=== PATIENT | female | born 1965 | race Caucasian/White ===

== ENCOUNTER 2019-05-11 22:04 | Emergency (ER) | payer BC ==
[2019-05-11 22:10] VITALS: RESP 18
[2019-05-11] MEDS ORDERED: SODIUM CHLORIDE 0.9% 1,000 ML IV STA (22:24)
[2019-05-11] MEDS ORDERED: MORPHINE SULFATE 4 MG/ML SYRINGE IVP STA (22:24)
--- NOTE | 2019-05-11 22:51 | ED ---
General Adult HPI - General Source: patient, EMS, RN notes reviewed Mode of arrival: EMS Limitations: no limitations <Nj Currie - Last Filed: 05/12/19 00:10> <Haris Cespedes - Last Filed: 05/12/19 01:24> - General Chief complaint: Fall Stated complaint: Dehydration Time Seen by Provider: 05/11/19 22:11 - History of Present Illness Initial comments: 54-year-old female fell any significant past medical history presents to the emergency department for a chief complaint of fall. Patient states that about an hour prior to arrival she was getting off the [employer] building she tripped and fell onto her right arm. States she has much pain with movement of the right arm at this time. States that she was outside for hours in the heat. States that she started to feel lightheaded after this fall but denies having lightheaded before the fall. Denies loss of consciousness. States that the lightheadedness has improved significantly. States she feels she is dehydrated hydrated and tired from being outside in the 90 weather. Denies any difficulty moving the right hand. Denies hitting her head. Does admit to falling on her right knee but states it is not painful and she is able to ambulate using the right knee without difficulty. Patient has no other complaints at this time including shortness of breath, chest pain, abdominal pain, nausea or vomiting, headache, or visual changes. (Nj Currie) - Related Data Home Medications Medication Instructions Recorded Confirmed Escitalopram [Lexapro] 10 mg PO DIRECTED 05/12/19 05/12/19 Previous Rx's Medication Instructions Recorded HYDROcodone/APAP 5-325MG [[place] 1 tab PO Q6HR PRN 3 Days #12 tab 05/12/19 5-325] Rizatriptan Benzoate [Maxalt] 10 mg PO TID PRN #12 tablet 05/12/19 Allergies Allergy/AdvReac Type Severity Reaction Status Date / Time No Known Allergies Allergy Verified 05/12/19 00:29 Review of Systems ROS Other: All systems not noted in ROS Statement are negative. <Nj Currie - Last Filed: 05/12/19 00:10> ROS Other: All systems not noted in ROS Statement are negative. <Haris Cespedes - Last Filed: 05/12/19 01:24> ROS Statement: Those systems with pertinent positive or pertinent negative responses have been documented in the HPI. Past Medical History History of Any Multi-Drug Resistant Organisms: None Reported Past Surgical History: No Surgical Hx Reported Past Psychological History: Depression Smoking Status: Never smoker Past Alcohol Use History: None Reported Past Drug Use History: None Reported <Nj Currie P - Last Filed: 05/12/19 00:10> General Exam Limitations: no limitations General appearance: alert, in no apparent distress Head exam: Present: atraumatic, normocephalic, normal inspection Eye exam: Present: normal appearance, PERRL, EOMI. Absent: scleral icterus, conjunctival injection, periorbital swelling ENT exam: Present: normal exam, mucous membranes moist Neck exam: Present: normal inspection, full ROM. Absent: tenderness, meningismus, lymphadenopathy Respiratory exam: Present: normal lung sounds bilaterally. Absent: respiratory distress, wheezes, rales, rhonchi, stridor Cardiovascular Exam: Present: regular rate, normal rhythm, normal heart sounds. Absent: systolic murmur, diastolic murmur, rubs, gallop, clicks GI/Abdominal exam: Present: soft, normal bowel sounds. Absent: distended, tenderness, guarding, rebound, rigid Extremities exam: Present: normal capillary refill (Very refill less than 2 seconds, radial pulse 2+ the right upper extremity), other (Sensation intact in the right upper extremity). Absent: full ROM (Patient unable to extend her elb ow due to pain which she feels in the right shoulder. Patient able to flex and extend all digits of the right hand as well as the right wrist), joint swelling (No significant edema or ecchymosis present in the right upper extremity) Back exam: Absent: vertebral tenderness Neurological exam: Present: alert, oriented X3, CN II-XII intact, normal gait, other (GCS 15) Psychiatric exam: Present: normal affect, normal mood <Nj Currie P - Last Filed: 05/12/19 00:10> Course Vital Signs 05/11/19 05/11/19 05/12/19 22:06 22:59 00:39 Temperature 97.9 F Pulse Rate 66 75 72 Respiratory 18 18 18 Rate Blood Pressure 113/61 112/73 117/57 O2 Sat by Pulse 100 100 99 Oximetry Medical Decision Making - Lab Data Result diagrams: 05/11/19 22:20 05/11/19 22:20 <Nj Currie - Last Filed: 05/12/19 00:10> - Lab Data Result diagrams: 05/11/19 22:20 05/11/19 22:20 <Haris Cespedes - Last Filed: 05/12/19 01:24> - Medical Decision Making 54-year-old female presents to the emergency department for a chief complaint of fall. States she had a trip and fall getting off of a [employer] wheel. I'll was purely mechanical. Patient fell on her outstretched hand and started to have shoulder pain and arm pain. After the fall she started to feel lightheaded and dehydrated. States that she's been on the sun for several hours today and it was in the 90s. Vitals are stable. On exam patient is well-appearing but does appear to be in pain. Patient has very limited range of motion of the right shoulder due to pain. Able to move right wrist with full flexion. Neurovascular status intact in the right upper extremity. CBC unremarkable. CMP does show evidence of dehydration with a BUN to creatinine ratio of 24 which is consistent with patient's history. X-ray of the right humerus shows questionable cortical step-off at the lateral aspect of the surgical neck. Recommended dedicated shoulder radiography. This was ordered and is pending. Care was signed out to Dr. Cespedes at [id number]. (Nj Currie) Shoulder x-ray was performed showing cortical irregularity at the surgical neck of the humerus. Patient has point tenderness at that area. Patient placed in a right upper extremity sling. Patient is visiting from [place]. She is given referral to bone doctor. Patient given by mouth pain prescription. She is also requests headache medication. Patient given small supply of Maxalt. Return pa rameters discussed. Patient clear for discharge. (Haris Cespedes) - Lab Data Lab Results 05/11/19 05/11/19 Range/Units 22:20 22:20 WBC 7.6 (3.8-10.6) k/uL RBC 3.99 (3.80-5.40) m/uL Hgb 12.4 (11.4-16.0) gm/dL Hct 36.8 (34.0-46.0) % MCV 92.2 (80.0-100.0) fL MCH 31.1 (25.0-35.0) pg MCHC 33.8 (31.0-37.0) g/dL RDW 14.0 (11.5-15.5) % Plt Count 223 (150-450) k/uL Neutrophils % 57 % Lymphocytes % 32 % Monocytes % 5 % Eosinophils % 3 % Basophils % 1 % Neutrophils # 4.3 (1.3-7.7) k/uL Lymphocytes # 2.4 (1.0-4.8) k/uL Monocytes # 0.4 (0-1.0) k/uL Eosinophils # 0.3 (0-0.7) k/uL Basophils # 0.1 (0-0.2) k/uL Sodium 140 (137-145) mmol/L Potassium 4.2 (3.5-5.1) mmol/L Chloride 108 H (98-107) mmol/L Carbon Dioxide 23 (22-30) mmol/L Anion Gap 9 mmol/L BUN 20 H (7-17) mg/dL Creatinine 0.82 (0.52-1.04) mg/dL Est GFR (CKD-EPI)AfAm >90 (>60 ml/min/1.73 sqM) Est GFR (CKD-EPI)NonAf 80 (>60 ml/min/1.73 sqM) Glucose 122 H (74-99) mg/dL Calcium 8.9 (8.4-10.2) mg/dL Disposition <Nj Currie P - Last Filed: 05/12/19 00:10> Is patient prescribed a controlled substance at d/c from ED?: Yes If prescribed controlled substance>3 days was MAPS reviewed?: Prescribed <3 Days Time of Disposition: 01:24 <Haris Cespedes - Last Filed: 05/12/19 01:24> Clinical Impression: Humerus fracture Disposition: HOME SELF-CARE Condition: Good Instructions (If sedation given, give patient instructions): Fall Prevention for Older Adults (ED), Proximal Humerus Fracture (ED) Prescriptions: Rizatriptan Benzoate [Maxalt] 10 mg PO TID PRN #12 tablet PRN Reason: Headache HYDROcodone/APAP 5-325MG [[place] 5-325] 1 tab PO Q6HR PRN 3 Days #12 tab PRN Reason: Severe Pain Referrals: Fernandez Cherry MD [STAFF PHYSICIAN] - 1-2 days
[2019-05-11 22:53] LABS: Basophils # (A) 0.1 k/uL (0-0.2); Basophils % (A) 1 %; Eosinophils # (A) 0.3 k/uL (0-0.7); Eosinophils % (A) 3 %; HCT 36.8 % (34.0-46.0); HGB 12.4 gm/dL (11.4-16.0); Lymphocytes # (A) 2.4 k/uL (1.0-4.8); Lymphocytes % (A) 32 %; MCH 31.1 pg (25.0-35.0); MCHC 33.8 g/dL (31.0-37.0); MCV 92.2 fL (80.0-100.0); Mean Platelet Volume 7.8; Monocytes # (A) 0.4 k/uL (0-1.0); Monocytes % (A) 5 %; Neutrophils # (A) 4.3 k/uL (1.3-7.7); Neutrophils % (A) 57 %; Platelet Count 223 k/uL (150-450); RBC 3.99 m/uL (3.80-5.40); WBC 7.6 k/uL (3.8-10.6)
[2019-05-11 23:01] LABS: African American GFR (CKD) >90 (>60 ml/min/1.73 sqM); Anion Gap 9 mmol/L; Blood Urea Nitrogen 20 mg/dL (7-17); Calcium 8.9 mg/dL (8.4-10.2); Carbon Dioxide 23 mmol/L (22-30); Chloride 108 mmol/L (98-107); Glucose 122 mg/dL (74-99); Potassium 4.2 mmol/L (3.5-5.1); Sodium 140 mmol/L (137-145)
--- NOTE | 2019-05-11 23:33 | XR ---
EXAM: XR Right Forearm, 2 Views CLINICAL HISTORY: ITS.REASON XR Reason: Pain TECHNIQUE: Frontal and lateral views of the right forearm. COMPARISON: No relevant prior studies available. FINDINGS: Bones/joints: Unremarkable. No acute fracture. No dislocation. Soft tissues: Unremarkable. IMPRESSION: Normal right forearm x-rays.
--- NOTE | 2019-05-11 23:42 | XR ---
EXAM: XR Right Humerus, 2 or More Views CLINICAL HISTORY: ITS.REASON XR Reason: Pain TECHNIQUE: Frontal and lateral views of the right humerus. COMPARISON: No relevant prior studies available. FINDINGS: See Impression IMPRESSION: Question cortical step-off at the lateral aspect of the surgical neck of humerus. Recommend dedicated shoulder radiography for further assessment. Remaining exam shows no other acute or healing fracture or malalignment. Visualized elbow is unremarkable. Soft tissues are unremarkable.
[2019-05-12] MEDS ORDERED: MORPHINE SULFATE 4 MG/ML SYRINGE IVP STA (00:08)
--- NOTE | 2019-05-12 01:09 | XR ---
EXAM: XR Right Shoulder Complete, 2 or More Views CLINICAL HISTORY: ITS.REASON XR Reason: Pain TECHNIQUE: Two or more views of the right shoulder. COMPARISON: No relevant prior studies available. FINDINGS: See Impression. IMPRESSION: Osseous irregularity suspicious for acute fracture involving the peripheral aspect of the surgical neck of humerus. Palpate for tenderness to confirm. No suspicious lytic or sclerotic lesions of bone otherwise. Mild degenerative changes of the acromioclavicular joint. Soft tissues are unremarkable.
[2019-05-12 01:46] VITALS: BP 101/61; PULSE 67; TEMP 99.1
== END 2019-05-12 01:44 | disposition home or self-care (01) ==
LOC: EC 22:04
DX: S42.211A Unspecified displaced fracture of surgical neck of right humerus, initial encounter for closed fracture (principal); R42 Dizziness and giddiness; F32.9 Major depressive disorder, single episode, unspecified; Z79.899 Other long term (current) drug therapy; W01.0XXA Fall on same level from slipping, tripping and stumbling without subsequent striking against object, initial encounter; Y92.89 Other specified places as the place of occurrence of the external cause
CPT/HCPCS: 36415; 80048; 85025; 73030; 73060; 73090; 99284; 96374; 96376; 96361; J2270 ×2